=== PATIENT | female | born 1945 | race Caucasian/White ===

== ENCOUNTER 2016-12-29 16:45 | Emergency (ER) | payer MEDICARE, OTHER ==
--- NOTE | 2017-01-03 07:21 | ER ---
ADMIT: 12/29/2016 RM/LOC: ER [facility] MR#: [id number] [facility] [address] [place] [id number] MEGHNA CALDERON [address] [place], [place] [id number] Emergency Room Report SEX: F AGE: 71 : 1945 DATE: 12/29/2016 TIME: 1645 hours. Please refer to my T-sheet for complete H and P. HISTORY OF PRESENT ILLNESS: Briefly, the patient is a 71-year-old, who comes in with chest discomfort. It has been for a week, gradual, lasts an hour or so, come and go. It does not radiate. Does not feel nauseous. No shortness of breath. Just feels weak. She actually called [facility] because she has a pacer and they interrogated it and said that she had been running in and out of [place]. They had her take an extra dose of flecainide. She recently has been adding Zoloft to her anxiety med. She has been cutting back on her Xanax. She seems somewhat anxious. PHYSICAL EXAMINATION: VITAL SIGNS: Blood pressure 173/76, pulse 75, respirations 12, temp 95.6, sat 97%. GENERAL: No acute distress. HEENT: Grossly normal. LUNGS: Clear. HEART: Regular. ABDOMEN: Soft. SKIN: No rash. NEURO: Slightly anxious but nonfocal. EMERGENCY DEPARTMENT COURSE: EKG is paced, rate 75, no changes. CBC was normal except white count 4.3. Chemistries normal. Troponin negative. TSH is normal at 2.31. Chest x-ray negative. I had her take her own Xanax here 0.25. She is feeling better. I reassured her. She has an appointment with [facility] , and she is ready for discharge. ASSESSMENT: 1. Chest pain, atypical. 2. Anxiety. PLAN: Use her medications as directed. Follow up with [facility] on . Return if worse. Domenic Pacheco MD/ deonna JOB #: [id number] CC: Domenic Pacheco MD, Attending Physician Karri Welch MD, Family Physician Ben Dye MD
== END 2016-12-29 18:00 | disposition home or self-care (01) ==
LOC: ER 16:45
DX: R07.89 Other chest pain (principal); F41.9 Anxiety disorder, unspecified; Z95.0 Presence of cardiac pacemaker; Z79.899 Other long term (current) drug therapy

== ENCOUNTER 2017-02-06 06:53 | Emergency (ER) | payer MEDICARE, OTHER ==
--- NOTE | 2017-02-13 08:39 | ER ---
ADMIT: 02/06/2017 RM/LOC: ER [facility] MR#: [id number] [address] [id number] MEGHNA CALDERON [address] [place], [place] [address] Emergency Room Report SEX: F AGE: 71 : 1945 DATE: 02/06/2017 A 71-year-old female, who was out gardening yesterday, comes to the Emergency Department today with complaints of palpitations and she thinks she may have got too hot yesterday. She does have past surgical history of cardiac disease, has a pacer implanted. See T-sheet for history and physical. A pacer rep interrogated the pacemaker and made adjustments in setting. I did discuss care as well with Dr. Cervantes who felt she could be followed up with no changes on medications in 1 to 2 weeks at [facility] and INR is pending at time of this dictation if there are any derangements, INR adjustments will be made prior to her discharge. DIAGNOSIS: Palpitations. Fransisco Vaz MD/ deonna JOB #: [id number] CC: Fransisco Vaz MD, Attending Physician UNKNOWN, Family Physician
== END 2017-02-06 12:58 | disposition home or self-care (01) ==
LOC: ER 06:53
DX: R00.2 Palpitations (principal); Z95.0 Presence of cardiac pacemaker; Z88.8 Allergy status to other drugs, medicaments and biological substances; Z79.01 Long term (current) use of anticoagulants; Z79.899 Other long term (current) drug therapy